=== PATIENT | male | born 1985 | race Two or more races ===

== ENCOUNTER 2021-03-28 16:30 | Emergency (ER) | payer SELFPAY ==
[~2021-03-28] VITALS: Ht 165.1 cm; Wt 70.6 kg
[2021-03-28] MEDS ORDERED: ACETAMINOPHEN 500 MG TABLET PO ONE (17:45)
[2021-03-28] MEDS ORDERED: IBUPROFEN 200 MG TABLET. PO ONE (17:45)
[2021-03-28] MEDS ORDERED: IV NORMAL SALINE 1000ML BAG 1,000 ML IV ONE (17:45)
[2021-03-28 18:16] LABS: BASO % 1 % (0-3); EOS % 0 % (0-3); HEMATOCRIT 42.5 % (39.0-53.0); HEMOGLOBIN 14.4 g/dL (13.0-17.5); LYMPH # 0.4 x10^3/uL (1.0-4.8); LYMPH % 5 % (24-48); MEAN CORPUSCULAR HEMOGLOBIN 29 pg (25-35); MEAN CORPUSCULAR HGB CONC 34 g/dL (31-37); MEAN CORPUSCULAR VOLUME 85 fL (79-100); MONO # 0.3 x10^3/uL (0.0-1.1); MONO % 4 % (0-9); NEUT # 6.7 x10^3/uL (1.8-7.7); NEUT % 90 % (31-73); PLATELET COUNT 209 x10^3/uL (140-400); RED BLOOD COUNT 4.98 x10^6/uL (4.30-5.70); RED CELL DISTRIBUTION WIDTH 12.8 % (11.5-14.5); WHITE BLOOD COUNT 7.5 x10^3/uL (4.0-11.0)
[2021-03-28 18:21] LABS: CALCIUM 8.3 mg/dL (8.5-10.1); CREATININE 1.1 mg/dL (0.7-1.3); GFR 76.2; POTASSIUM 3.7 mmol/L (3.5-5.1)
[2021-03-28 18:27] LABS: ALBUMIN 3.1 g/dL (3.4-5.0); ALBUMIN/GLOBULIN RATIO 0.7 (1.0-1.7); TOTAL BILIRUBIN 0.4 mg/dL (0.2-1.0); TOTAL PROTEIN 7.7 g/dL (6.4-8.2)
[2021-03-28 18:37] LABS: INFLUENZA A PATIENT NEGATIVE (NEGATIVE); INFLUENZA B PATIENT NEGATIVE (NEGATIVE)
--- NOTE | 2021-03-28 19:29 | RAD ---
EXAMINATION: Chest radiograph. VIEWS: 1 COMPARISON: None INDICATION:35 years, Male, cough, congestion and fever. FINDINGS: Normal cardiomediastinal silhouette. Multifocal bilateral pulmonary infiltrates, particularly in the right lung. No pleural effusion or pneumothorax. No acute osseous process. IMPRESSION: Multifocal bilateral pulmonary infiltrates suspicious for multifocal pneumonia. Correlate for Covid 1 9 test. Electronically signed by: Quinten Lomas MD (03/28/2021 7:26 PM) [facility]
[2021-03-28] MEDS ORDERED: AMOX500C PO ×2 (20:18→21:35)
--- NOTE | 2021-03-28 20:18 | PHYS DOC ---
Past Medical History Past Surgical History: No Surgical History Smoking Status: Never Smoker Alcohol Use: Occasionally General Adult EDM: Chief Complaint: FEVER HPI: HPI: Patient is a 35-year-old male presents to the emergency department complaining of sore throat with cough and body aches and chills for the past week. Patient denies taking his fever at home. Patient reports he has been treating with [id number] Tylenol. Patient reports his last dose was this morning he took 2 tablets of an unknown strength. Patient denies chest pains, nasal congestion, abdominal pain, nausea, vomiting, or diarrhea. Patient reports he has not been vaccinated for the COVID-19 virus or the flu vaccination this year. Patient denies other physical complaints or physical concerns Review of Systems: Review of Systems: 14 body systems of review of systems have been reviewed. See HPI for pertinent positives and negative responses, otherwise all other systems are negative, nonpertinent or noncontributory. Constitutional: Negative except as outlined in HPI above. Skin: Negative except as outlined in HPI above. Eyes: Negative except as outlined in HPI above. HENT: Negative except as outlined in HPI above. Respiratory: Negative except as outlined in HPI above. Cardiovascular: Negative except as outlined in HPI above. GI: Negative except as outlined in HPI above. : Negative except as outlined in HPI above. Musculoskeletal: Negative except as outlined in HPI above. Integument: Negative except as outlined in HPI above. Neurologic: Negative except as outlined in HPI above. Endocrine: Negative except as outlined in HPI above. Lymphatic: Negative except as outlined in HPI above. Psychiatric: Negative except as outlined in HPI above. Heart Score: C/O Chest Pain: No Risk Factors: Risk Factors: DM, Current or recent (<one month) smoker, HTN, HLP, family history of CAD, obesity. Risk Scores: Score 0 - 3: 2.5% MACE over next 6 weeks - Discharge Home Score 4 - 6: 20.3% MACE over next 6 weeks - Admit for Clinical Observation Score 7 - 10: 72.7% MACE over next 6 weeks - Early Invasive Strategies Current Medications: Current Medications Medications (Trade) Dose Ordered Sig/Sunil Start Time Stop Time Status Last Admin Dose Admin Acetaminophen (Tylenol) 1,000 mg 1X ONCE 03/28/21 17:45 03/28/21 18:41 DC 03/28/21 18:29 1,000 MG Ibuprofen (Motrin) 600 mg 1X ONCE 03/28/21 17:45 03/28/21 18:41 DC 03/28/21 18:28 600 MG Sodium Chloride 1,000 ml @ 1,000 mls/hr 1X ONCE 03/28/21 17:45 03/28/21 18:44 DC 03/28/21 18:28 1,000 MLS/HR Allergies: Allergies: Allergies Coded Allergies Type Severity Reaction Last Updated Verified No Known Drug Allergies 03/28/21 No Physical Exam: PE: Constitutional: Well developed, well nourished, no acute distress, non-toxic appearance. 35-year-old male appears uncomfortable otherwise in no apparent distress. HENT: Normocephalic, atraumatic. Oropharynx erythematous, no uvular edema or deviation, bilateral tonsillar swelling with cobblestoning without exudative drainage, no postnasal drip appreciated, no laryngeal edema, no drooling, no trismus. Bilateral submental lymphadenopathy appreciated. Bilateral TMs within normal limits, no drainage from external auditory canals. No other lymphadenopathy of the head or neck appreciated. Eyes: Conjunctiva normal, no discharge. Neck: Normal range of motion, no stridor. No nuchal rigidity, no meningismus signs. Cardiovascular: No cyanosis appreciated, distal cap refill less than 2 seconds. Regular rate and rhythm. Lungs & Thorax: Patient is in no respiratory distress, no audible adventitious lung sounds appreciated. Normal work of breathing, lung sounds diminished bilateral bases otherwise clear to auscultation all other lung pedro without adventitious lung sounds appreciated. Normal work of breathing. Abdomen: Nontender, no abnormalities noted. Skin: Warm, dry, no erythema, no rash. Back: No tenderness, no deformities. Extremities: No tenderness, no cyanosis, no clubbing, ROM intact, no edema. Neurologic: Alert and oriented X 3, normal motor function, normal sensory function, no focal deficits noted. Psychologic: Affect normal, judgement normal, mood normal. Current Patient Data: Labs: Laboratory Tests Test 03/28/21 16:46 03/28/21 16:51 03/28/21 16:53 White Blood Count 7.5 x10^3/uL (4.0-11.0) Red Blood Count 4.98 x10^6/uL (4.30-5.70) Hemoglobin 14.4 g/dL (13.0-17.5) Hematocrit 42.5 % (39.0-53.0) Mean Corpuscular Volume 85 fL (79-100) Mean Corpuscular Hemoglobin 29 pg (25-35) Mean Corpuscular Hemoglobin Concent 34 g/dL (31-37) Red Cell Distribution Width 12.8 % (11.5-14.5) Platelet Count 209 x10^3/uL (140-400) Neutrophils (%) (Auto) 90 % (31-73) H Lymphocytes (%) (Auto) 5 % (24-48) L Monocytes (%) (Auto) 4 % (0-9) Eosinophils (%) (Auto) 0 % (0-3) Basophils (%) (Auto) 1 % (0-3) Neutrophils # (Auto) 6.7 x10^3/uL (1.8-7.7) Lymphocytes # (Auto) 0.4 x10^3/uL (1.0-4.8) L Monocytes # (Auto) 0.3 x10^3/uL (0.0-1.1) Eosinophils # (Auto) 0.0 x10^3/uL (0.0-0.7) Basophils # (Auto) 0.0 x10^3/uL (0.0-0.2) Sodium Level 136 mmol/L (136-145) Potassium Level 3.7 mmol/L (3.5-5.1) Chloride Level 99 mmol/L (98-107) Carbon Dioxide Level 25 mmol/L (21-32) Anion Gap 12 (6-14) Blood Urea Nitrogen 18 mg/dL (8-26) Creatinine 1.1 mg/dL (0.7-1.3) Estimated GFR (Cockcroft-Gault) 76.2 BUN/Creatinine Ratio 16 (6-20) Glucose Level 104 mg/dL (70-99) H Lactic Acid Level 1.1 mmol/L (0.4-2.0) Calcium Level 8.3 mg/dL (8.5-10.1) L Total Bilirubin 0.4 mg/dL (0.2-1.0) Aspartate Amino Transferase (AST) 62 U/L (15-37) H Alanine Aminotransferase (ALT) 53 U/L (16-63) Alkaline Phosphatase 75 U/L (46-116) Total Protein 7.7 g/dL (6.4-8.2) Albumin 3.1 g/dL (3.4-5.0) L Albumin/Globulin Ratio 0.7 (1.0-1.7) L SARS-CoV-2 Antigen (Rapid) Negative (NEGATIVE) Influenza Type A Antigen Negative (NEGATIVE) Influenza Type B Antigen Negative (NEGATIVE) Laboratory Tests 03/28/21 16:46 Laboratory Tests 03/28/21 16:46 Vital Signs: Vital Signs Date Time Temp Pulse Resp B/P (MAP) Pulse Ox O2 Delivery O2 Flow Rate FiO2 03/28/21 18:54 91 23 117/65 (82) 95 Room Air 03/28/21 17:11 102.4 102.4 EKG: EKG: [] Radiology/Procedures: Radiology/Procedures: REASON: Cough, congestion, fever PROCEDURE: CHEST AP ONLY EXAMINATION: Chest radiograph. VIEWS: 1 COMPARISON: None INDICATION:35 years, Male, cough, congestion and fever. FINDINGS: Normal cardiomediastinal silhouette. Multifocal bilateral pulmonary infiltrates, particularly in the right lung. No pleural effusion or pneumothorax. No acute osseous process. IMPRESSION: Multifocal bilateral pulmonary infiltrates suspicious for multifocal pneumonia. Correlate for Covid 19 test. Electronically signed by: Quinten Lomas MD (03/28/2021 7:26 PM) [facility] Course & Med Decision Making: Course & Med Decision Making Pertinent Labs and Imaging studies reviewed. (See chart for details) 35-year-old male, vital signs reviewed, resents emerged from concerning sore throat with body aches and chills. Patient's physical presentation concerning for viral versus bacterial pharyngitis, also possible pneumonia versus viral pneumonia versus viral syndrome versus COVID-19 virus presentation. The patient is currently febrile, will give Tylenol and Motrin p.o., blood cultures x2, CBC, CMP, lactic acid. Patient's lactic acid level normal, CBC and CMP unremarkable, chest x-ray concerning for Covid pneumonia, rapid Covid testing is negative with PCR pending at this time. The patient's rapid strep positive. Discussed findings with patient, will treat with amoxicillin for strep pharyngitis, I discussed COVID-19 virus PCR pending, discussed rapid was negative however PCR may come back positive. Discussed COVID-19 virus social distancing. Discussed with patient will attach information to his discharge document regarding COVID-19 virus information. Discussed medications prescribed with side effects, continue taking Tylenol and Motrin for returning fever, body aches, chills. Will give recommendation for area clinics and health care providers to establish primary care. Patient gave verbal understanding of and is amenable to ED discharge pl anning. Discussed with the patient all findings and diagnostic testing as well as the need to follow-up with their primary care provider for further evaluation and treatment or return to the ED if any new or worsening symptoms. Strict return precautions were also discussed at length, the patient voiced understanding and agreement with the discharge planning. The patient was nontoxic in appearance, in no apparent distress, and hemodynamically stable at the time of disposition. Dragon Disclaimer: Dragon Disclaimer: This electronic medical record was generated, in whole or in part, using a voice recognition dictation system. Departure Departure Impression: Primary Impression: Strep throat Additional Impression: Person under investigation for COVID-19 Disposition: 01 HOME / SELF CARE / HOMELESS Condition: GOOD Referrals: NO PCP (PCP) Patient Instructions: Strep Throat Additional Instructions: You were seen today in the emergency department for a cough and fever with chills with body aches that have been going on for the past week. Your physical examination included a rapid Covid testing, rapid flu testing, strep throat testing, lab work to look at systemic infection and electrolyte imbalance and acute infectious process. Your blood lab work was nonconcerning, your rapid Covid testing did not come back positive however your chest x-ray did indicate signs of the Covid virus. There is still another Covid test pending that takes another 2 more days to complete. I recommend Covid isolation and social distancing until your Covid status is known. Your strep throat test also came back positive. As we discussed I am starting you on an antibiotic that you will take twice a day for the next 10 days. I suspect your fever with body aches will return while the viral syndrome which may be the Covid virus continues its process. As we discussed, please use Tylenol and/or Motrin for returning fevers along with body aches and pains. Return to the emergency department for worsening symptoms, increased shortness of breath, or other concerns. You had stated you do not have a primary care physician, I have attached a copy of local clinics and primary care physicians, please choose a provider to establish primary care. Thank you for visiting our Emergency Department. It was a pleasure taking care of you today in the emergency department and we appreciate you trusting us with your care. If any additional problems come up don't hesitate to return to visit us. Please follow up with your primary care provider so they can plan additional care if needed and know about the problem that you had. If symptoms worsen come back to the Emergency Department. Any concerning symptoms that start such as chest pain, shortness of air, weakness or numbness on one side of the body, running high fevers or any other concerning symptoms return to the ER. Hoy lo vieron en el departamento de emergencias por tos y fiebre con escalofros y pam corporales que nieto estado ocurriendo jama la ltima semana. [place] examen fsico incluy evan prueba rpida de Covid, evan prueba rpida de la gripe, evan prueba de faringitis estreptoccica, anlisis de laboratorio para observar la infeccin sistmica y el desequilibrio electroltico y el proceso infeccioso emilee. Barlow anlisis de laboratorio de helen fue indiferente, barlow prueba rpida de Covid no sunil positivo, sin embargo, barlow radiografa de trax indic signos del virus Covid. Todava hay otra prueba de Covid pendiente que tarda otros 2 cruz ms en completarse. Recomiendo el aislamiento de Covid y el distanciamiento social hasta que se conozca barlow estado de Covid. Barlow prueba de faringitis est reptoccica tambin result positiva. [place] comentamos, le estoy comenzando a amanda un antibitico que amanda dos veces al da jama los prximos 10 cruz. Sospecho que volver a tener fiebre con pam corporales mientras el sndrome viral, que puede ser el virus Covid, contina barlow proceso. [place] comentamos, use Tylenol y / o Motrin para las fiebres que regresan junto con los pam y molestias corporales. Regrese al departamento de emergencias si los sntomas empeoran, aumenta la dificultad para respirar u otras inquietudes. Roman dicho que no tiene un mdico de atencin primaria, he adjuntado evan copia de las clnicas locales y los mdicos de atencin primaria; elija un proveedor para establecer la atencin primaria. Jessi por visitar nuestro Departamento de Emergencias. Fue un placer atenderlo hoy en el departamento de emergencias y le agradecemos que nos haya confiado barlow atencin. Si surge algn problema adicional, no dude en volver a visitarnos. Maria D un seguimiento con barlow proveedor de atencin primaria para que puedan planificar atencin adicional si es necesario y conocer el p roblema que tuvo. Si los sntomas empeoran, regrese al Departamento de Emergencias. Cualquier sntoma preocupante que comience, ezekiel dolor en el pecho, falta de aire, debilidad o entumecimiento en un lado del cuerpo, fiebre dakota o cualquier otro sntoma preocupante, regresa a la kendy de emergencias. Definicin Se le realiz la prueba de deteccin del COVID-19 o se le diagnostic dicha enfermedad. Es evan infeccin ocasionada por un nuevo tipo de coronavirus. En la mayora de los casos, el COVID-19 provoca sntomas similares a los del resfriado. En algunas personas, puede ocasionar sntomas ms graves, ezekiel problemas respiratorios. No existe un tratamiento para el virus COVID-19. El cuerpo elimina la infeccin con el tiempo. El cuidado personal ayuda a aliviar el malestar. Pasos que debe seguir 1. Cuidados personales Descanse cuando sea necesario. Los hbitos saludables pueden ayudarlo a sentirse mejor. Algunas medidas para lograr cambios incluyen lo siguiente: - Elija alimentos saludables, ezekiel frutas y verduras. Margaret abundante cantidad de agua jama todo el da. - Duerma itz por la noche. - Si fuma, intente no hacerlo. [place] ayudar a mejorar la respiracin. - Evite el alcohol. 2. Mantenga sanos a los dems El virus puede contagiarse a otras personas. Cada vez que estornuda o tose, se liberan gotitas. Las gotitas pueden entrar en la boca, la nariz o los ojos de las personas que se encuentran cerca de usted y ocasionar la infeccin. Para reducir las probabil idades de contagiar el virus COVID-19 a otros, tenga en cuenta lo siguiente: - Qudese en casa el tiempo que el mdico se lo indique. Es posible que deba quedarse en casa hasta que la enfermedad desaparezca. Salga nicamente para recibir atencin mdica o en nilsa de urgencia. - Evite las reas pblicas, los eventos o el transporte pblico. No reanude las actividades laborales o escolares hasta que el mdico lo autorice. - Llame previamente si necesita asistir a un centro mdico. Avise que es posible que haya contrado COVID-19. [place] ayudar a que le indiquen adonde debe dirigirse. [place] bin pueden pedirle que use evan mscara facial cuando vaya al consultorio. Si llama a los servicios de asistencia mdica de urgencias, avseles que es posible que haya contrado COVID-19. Mientras est en casa: - Evite el contacto directo con otras personas. Mantngase a evan distancia aproximada de 2 metros. Si es posible, pasen la mayor parte del tiempo en perez separadas. - Use evan mscara facial si estar en contacto directo con otras personas, por ejemplo, si compartir evan habitacin o un vehculo. - Pida a alguien que limpie las superficies comunes de la casa. Limpie picaportes, mesadas y lavamanos con limpiadores domsticos todos los cruz. - Al toser o estornudar, cbrase con un pauelo de papel. Despus de usarlo, deschelo de inmediato. Si no tiene un pauelo de papel, tosa o estornude en el pliegue del codo. - Lvese las geovanna con frecuencia. Lvese las geovanna despus de estornudar o toser. Lvese con agua y jabn jama, al menos, 20 segundos. Si no dispone de agua y jabn, use un limpiador de geovanna a base de alcohol. - No cocine para otros. Evite compartir objetos personales, ezekiel tenedores, cucharas o cepillos de dientes. - Mientras est enfermo, evite el contacto directo con las mascotas. No hay indicios de si el virus se transmite a las mascotas. Esta es evan medida de seguridad que debe tenerse en cuenta hasta que se sepa ms acerca de david virus. El aislamiento puede ser frustrante. La interaccin social puede ayudar. Mantngase en contacto con amigos y familiares por telfono u otros medios tecnolgicos. Puede interactuar con otras personas en el hogar, jennifer mantenga evan distancia giang de aproximadamente 2 metros. Seguimiento Las pruebas para confirmar la presencia del COVID-19 pueden demorar algunos cruz. Es posible que deba seguir los pasos mencionados anteriormente hasta que estn los resultados de las pruebas. Lo llamarn del consultorio mdico para saber si roman habido algn cambio en barlow jose luis. Tambin le avisarn cuando pueda volver a estar cerca de otras personas. Problemas a los que debe estar atento Comunquese con el mdico si no se recupera segn lo previsto o si tiene problemas ezekiel los siguientes: - Dificultad para respirar - Dolor de pecho - Empeoramiento de los sntomas Si radames que tiene evan urgencia, llame a los servicios de asistencia mdica de urgencias de inmediato. As taken from [facility] Scripts Amoxicillin (AMOXICILLIN) 500 Mg Capsule 1 CAP PO BID for Strep throat for 10 Days, #20 CAP 0 Refills Prov: DIVYA VILLARREAL CREDIT RISK SPECIALIST 03/28/21 DIVYA VILLARREAL CREDIT RISK SPECIALIST Mar 28, 2021 20:18
[2021-03-28 20:52] VITALS: BP 90/54
--- NOTE | 2021-03-29 16:15 | NUR ---
IP: Attempted to contact pt concerning covid results. No answer, left a voicemail to return the call. Addendum: 03/29/21 at 1634 by DEEPAK STEVENSON RN Pt returned call. Informe him of negative covid test. Pt still concerned about symptoms. Instructed on returning to ED or a PCP for follow up.
== END 2021-03-28 21:01 | disposition home or self-care (01) ==
LOC: ER 16:30
DX: J02.0 Streptococcal pharyngitis (principal); Z20.822 Contact with and (suspected) exposure to COVID-19; B95.5 Unspecified streptococcus as the cause of diseases classified elsewhere
CPT/HCPCS: 36415; 71045; 80053; 83605; 85025; 87040; 87070; 87426; 87804; 87880; 96360; 96361; 99285; J7030; U0003; U0005